=== PATIENT | male | born 1980 | race Caucasian/White ===

== ENCOUNTER 2020-09-18 | Emergency (ER) | payer OTHER ==
[~2020-09-18] VITALS: Ht 180.3 cm; Wt 77.0 kg
[2020-09-18] MEDS ORDERED: KETOROLAC 30 MG/ML VIAL. IM ONE (00:30)
[2020-09-18] MEDS ORDERED: MIDAZOLAM HCL PF 5 MG/5 ML VIAL. IM ONE (01:00)
--- NOTE | 2020-09-18 01:19 | RAD ---
XR SHOULDER_LEFT 2+ VIEWS 09/18/2020 12:19 AM INDICATION: Trauma, fall on ice COMPARISON: None available. TECHNIQUE: 3 views of the left shoulder are provided. FINDINGS/ IMPRESSION: There is no acute fracture or dislocation. Joint spaces are maintained. Bone mineralization is within normal limits. Regional soft tissues are within normal limits. There is no soft tissue gas or osseou s erosion. No radiopaque foreign body. Electronically signed by: Leslie Avery MD (09/18/2020 1:16 AM) [place]
--- NOTE | 2020-09-18 01:21 | RAD ---
XR ELBOW COMPLETE_LEFT 3+VIEWS 09/18/2020 12:19 AM INDICATION: Trauma, fall on ice COMPARISON: None available. TECHNIQUE: 3 views of the left elbow are provided. FINDINGS/ IMPRESSION: 1. There is radiocapitellar and ulnar trochlear dislocation. Elbow joint effusion is present. Suspect a fracture involving the coronoid process. Postreduction films could be of benefit. Electronically signed by: Leslie Avery MD (09/18/2020 1:18 AM) [place]
[2020-09-18] MEDS ORDERED: KETAMINE HCL 500 MG/10 ML VIAL. IV ONE (01:30)
[2020-09-18] MEDS ORDERED: MIDAZOLAM HCL PF 5 MG/5 ML VIAL. IV ONE (02:30)
--- NOTE | 2020-09-18 03:05 | RAD ---
XR ELBOW_LEFT 09/18/2020 2:20 AM INDICATION: Postreduction COMPARISON: Left elbow radiograph 09/18/2020 TECHNIQUE: 3 views of the left elbow are provided. FINDINGS/ IMPRESSION: 1. Interval reduction of the radiocapitellar and ulnar trochlear joints. There is a mildly displaced fracture involving the ulnar coronoid process. 2. There is subtle lucency along the supracondylar humerus as may be seen with nondisplaced fracture. Electronically signed by: Leslie Avery MD (09/18/2020 3:03 AM) [facility]
--- NOTE | 2020-09-18 03:33 | PHYS DOC ---
Past History Past Medical History: Other Additional Past Medical Histor: AUTO-IMMUNE HEPATITIS Past Surgical History: Tonsillectomy, Other Additional Past Surgical Histo: SEPTOPLASTY Alcohol Use: Occasionally Adult General Chief Complaint Chief Complaint: SHOULDER INJURY HPI HPI Patient is an otherwise healthy 39-year-old male who presents with left elbow pain. States he was on a date, slipped on some ice and fell on an outstretched hand. States he had immediate pain, 8 out of 10, sharp in nature. Denies any other injuries, syncope, chest pain, shortness of breath, nausea, vomiting. Review of Systems Review of Systems Review of systems otherwise unremarkable except for noted in HPI. Current Medications Current Medications Current Medications Medications (Trade) Dose Ordered Sig/Luis Carlos Start Time Stop Time Status Last Admin Dose Admin Ketamine HCl (Ketamine) 500 mg 1X ONCE 09/18/20 01:30 09/18/20 01:31 DC 09/18/20 01:52 500 MG Ketorolac Tromethamine (Toradol 30mg Vial) 30 mg 1X ONCE 09/18/20 00:30 09/18/20 00:32 DC 09/18/20 00:30 30 MG Midazolam HCl (Versed) 3 mg 1X ONCE 09/18/20 01:00 09/18/20 01:01 DC 09/18/20 00:52 3 MG Allergies Allergies Allergies Coded Allergies Type Severity Reaction Last Updated Verified Opioids - Morphine Analogues Allergy Severe Anaphylaxis 09/18/20 Yes Penicillins Allergy Unknown 09/18/20 Yes Physical Exam Physical Exam Constitutional: Well developed, well nourished, no acute distress, non-toxic appearance. [] HENT: Normocephalic, atraumatic, bilateral external ears normal, oropharynx moist, no oral exudates, nose normal. [] Eyes: conjunctiva normal, no discharge. [] Neck: Normal range of motion, no tenderness, Cardiovascular:Heart rate regular rhythm, no murmur [] Lungs & Thorax: Bilateral breath sounds clear to auscultation [] Back: No tenderness, Extremities: Patient has tenderness about the left elbow with obvious deformity. Neurovascular exam intact. Neurologic: Alert and oriented X 3, normal motor function, normal sensory function, no focal deficits noted. [] Psychologic: Affect normal, judgement normal, mood normal. [] Current Patient Data Vital Signs Vital Signs Date Time Temp Pulse Resp B/P (MAP) Pulse Ox O2 Delivery O2 Flow Rate FiO2 09/18/20 02:16 86 19 100 09/18/20 01:47 123/89 (100) Room Air 09/18/20 00:10 98.3 EKG EKG [] Radiology/Procedures Radiology/Procedures []FINDINGS/ IMPRESSION: 1. Interval reduction of the radiocapitellar and ulnar trochlear joints. There is a mildly displaced fracture involving the ulnar coronoid process. 2. There is subtle lucency along the supracondylar humerus as may be seen with nondisplaced fracture. Electronically signed by: Leslie Avery MD (09/18/2020 3:03 AM) [facility] FINDINGS/ IMPRESSION: 1. There is radiocapitellar and ulnar trochlear dislocation. Elbow joint effusion is present. Suspect a fracture involving the coronoid process. Postreduction films could be of benefit. Electronically signed by: Leslie Avery MD (09/18/2020 1:18 AM) [facility] Heart Score Risk Factors: Risk Factors: DM, Current or recent (<one month) smoker, HTN, HLP, family history of CAD, obesity. Risk Scores: Risk Factors: DM, Current or recent (<one month) smoker, HTN, HLP, family history of CAD, obesity. Course & Med Decision Making Course & Med Decision Making Patient is a 39-year-old male that fell on the ice and came in with left elbow p ain Vital signs not concerning. Physical exam noted above. Patient allergic to all opioids. Given Toradol for pain initially. Patient placed on the monitor with IV access established. Placed on end-tidal CO2, oxygen and Ambu bag in room. Crash cart available. Imaging noted above showing elbow dislocation and probable coronoid process fracture and postreduction film. Procedural sedation with ketamine provided adequate analgesia/anesthesia for reduction. Patient tolerated procedure well. Post reduction films showed interval reduction. Also showed mildly displaced fracture involving the coronoid process and possibly along the supracondylar. On reassessment patient awake, alert and oriented in no acute distress. Able to take p.o. without issue. Able to walk without issue. Vital signs not concerning. Gave patient strict return precautions to the ED as well as strict follow-up recommendations per this Saturday. Given pain medicine and pain regimen at home. Patient grateful, verbalized understanding and agreed with plan of discharge. [] Dragon Disclaimer Dragon Disclaimer This electronic medical record was generated, in whole or in part, using a voice recognition dictation system. Departure Departure: Impression: Primary Impression: Dislocated elbow Additional Impressions: Fracture of coronoid process of left ulna Supracondylar fracture of humerus, closed Disposition: 01 DC HOME SELF CARE/HOMELESS Condition: GOOD Referrals: PCP,UNKNOWN (PCP) Patient Instructions: Cast or Splint Care, Elbow Dislocation, Elbow Fracture, Simple Additional Instructions: Please read all the attached information on your diagnoses and splint care. Please begin a high-dose ibuprofen and Tylenol regimen with 800 mg of ibuprofen 3 times a day and 1000 mg of Tylenol 3 times a day. please call the orthopedic surgeons at [facility] at [phone] first thing Saturday morning to discuss your ED visit and set up a follow-up visit for reevaluation and repeat imaging. Please come back to the ED with any new or concerning symptoms. Problem Qualifiers JOZEF DICKINSON MD Sep 18, 2020 03:33
[2020-09-18 03:35] VITALS: BP 126/86
== END 2020-09-18 04:05 | disposition home or self-care (01) ==
LOC: ER
DX: S53.105A Unspecified dislocation of left ulnohumeral joint, initial encounter (principal); S52.042A Displaced fracture of coronoid process of left ulna, initial encounter for closed fracture; S42.412A Displaced simple supracondylar fracture without intercondylar fracture of left humerus, initial encounter for closed fracture; Z88.5 Allergy status to narcotic agent; Z88.0 Allergy status to penicillin; W00.0XXA Fall on same level due to ice and snow, initial encounter; Y93.89 Activity, other specified; Y92.89 Other specified places as the place of occurrence of the external cause; Y99.8 Other external cause status
CPT/HCPCS: 24600; 73030; 73070; 73080; 96372; 96374; 99285; J1885; J2250